=== PATIENT | female | born 1995 | race Caucasian/White ===

== ENCOUNTER 2025-01-04 05:23 | Day surgery (SDC) | payer BC ==
[2025-01-03 10:42] VITALS: BMI 28.3
[2025-01-04] MEDS ORDERED: Tranexamic Acid 1,000 MG/10 ML VIAL ONE (06:36)
[2025-01-04] MEDS ORDERED: Methylergonovine 0.2 MG/ML VIAL ONE ×2 (06:37→07:51)
[2025-01-04] MEDS ORDERED: PROPOFOL 20 ML ONE ×2 (06:45→06:46)
[2025-01-04] MEDS ORDERED: Ondansetron PF 4 MG/2 ML Vial ONE (06:46)
[2025-01-04] MEDS ORDERED: Lidocaine 1% PF 5 ML VIAL ONE (06:46)
[2025-01-04] MEDS ORDERED: CEFAZOLIN 2 GM VIAL ONE (06:52)
[2025-01-04 07:16] LABS: #Basophils 0.05 10x3/uL (0.0-0.2); #Eosinophils 0.07 10x3/uL (0.0-0.5); #Monocytes 0.45 10x3/uL (0.0-1.1); #Neutrophils 4.64 10x3/uL (1.5-8.4); %Basophils 0.7 % (0.0-2.0); %Eosinophils 1.0 % (0.0-6.0); %Lymphocytes 25.2 % (18.0-47.0); %Monocytes 6.4 % (0.0-10.0); %Neutrophils 66.1 % (40.0-75.0); Hematocrit 41.8 % (34.9-44.5); Hemoglobin 14.2 g/dL (12.0-15.5); Mean Corpuscular Hemoglobin 30.7 pg (27.0-33.0); Mean Corpuscular Volume 90.3 fL (81.6-98.3); Platelet Count 245 10x3/uL (150-450); Red Blood Cell (RBC) Count 4.63 10x6/uL (3.90-5.03); White Blood Cell (WBC) Count 7.02 10x3/uL (3.5-10.5)
[2025-01-04] MEDS ORDERED: Silver Nitrate Application 1 EACH ONE (07:35)
[2025-01-04] MEDS ORDERED: Ketorolac Tromethamine 30 MG (1 mL) VIAL ONE (07:50)
[2025-01-04] MEDS ORDERED: Methylergonovine 0.2 MG TAB ONE (08:01)
== END 2025-01-04 09:05 | disposition home or self-care (01) ==
LOC: CSHSDC 05:23
PROVIDERS: ATTEND Obstetrics & Gynecology
PROC: 10D17ZZ Extraction of Products of Conception, Retained, Via Natural or Artificial Opening (ICD-10-PCS; principal; 2025-01-04)
DX: O02.0 Blighted ovum and nonhydatidiform mole (principal); Z91.048 Other nonmedicinal substance allergy status; Z79.899 Other long term (current) drug therapy
CPT/HCPCS: 36415; 85025; 86850; 86900; 86901; 88305; J1100; J1885; J2210; J2405; J2704; J3010